=== PATIENT | male | born 1990 | race Caucasian/White ===

== ENCOUNTER 2020-08-13 06:51 | Emergency (ER) | payer OTHER ==
[~2020-08-13] VITALS: Ht 185.4 cm; Wt 77.3 kg
[~2020-08-13 06:51] MED LIST: NO HOME MEDS
[2020-08-13 06:55] VITALS: BP 144/91
== END 2020-08-13 07:55 | disposition home or self-care (01) ==
LOC: ER 06:52 → EEVIPCON 06:52 → ER 07:55
DX: S40.811A Abrasion of right upper arm, initial encounter (principal); Z02.89 Encounter for other administrative examinations; W54.0XXA Bitten by dog, initial encounter; Y93.89 Activity, other specified; Y92.89 Other specified places as the place of occurrence of the external cause; Y99.8 Other external cause status
CPT/HCPCS: 99281; 99283

== ENCOUNTER 2023-11-15 22:47 | Emergency (ER) | payer MEDICAID ==
[~2023-11-15] VITALS: Ht 185.4 cm; Wt 77.3 kg
[2023-11-15 22:55] VITALS: BP 112/69; PULSE 105; RESP 18; TEMP 97.7; O2SAT 97
== END 2023-11-15 23:59 | disposition home or self-care (01) ==
LOC: ER 22:48
DX: M79.671 Pain in right foot (principal)
CPT/HCPCS: 73630; 99283

== ENCOUNTER 2024-01-18 21:16 | Emergency (ER) | payer MEDICAID ==
[~2024-01-18] VITALS: Ht 185.4 cm; Wt 77.3 kg
[2024-01-18 21:19] VITALS: BP 140/80; PULSE 98; RESP 19; TEMP 98.2; O2SAT 100
== END 2024-01-19 02:16 | disposition left against medical advice (07) ==
LOC: ER 21:17
DX: R51.9 Headache, unspecified (principal); R68.84 Jaw pain; Z53.21 Procedure and treatment not carried out due to patient leaving prior to being seen by health care provider
CPT/HCPCS: 99281